=== PATIENT | female | born 2000 | race African-American/Black ===

== ENCOUNTER 2021-03-26 18:08 | Emergency (ER) | payer BC, SELFPAY ==
--- NOTE | ~2021-03-26 | CT_ITS ---
EXAMINATION: CT brain wo con DATE: 03/26/2021 19:20 INDICATION: Syncope TECHNIQUE: Computed tomography (CT) of the head was performed without intravenous contrast. Sagittal and coronal reconstructions were performed. The mA was adjusted according to patient size. Iterative reconstruction technique was employed. The dose-length product was 605.33 mGy-cm. COMPARISON: None FINDINGS: No acute intracranial hemorrhage, acute infarction or abnormal extra axial fluid collection. Ventricl es are normal and symmetric. No mass/mass effect. The orbits, paranasal sinuses and mastoid air cells are normal. IMPRESSION: 1. Normal head CT. Reviewed, dictated and finalized at location A. IMPRESSION: 1. Normal head CT.
--- NOTE | ~2021-03-26 | XR_ITS ---
EXAMINATION: XR chest 2V DATE: 03/26/2021 19:30 INDICATION: Syncope, nausea, vomiting and diarrhea TECHNIQUE: frontal and lateral views of the chest were obtained. COMPARISON: None FINDINGS: The lungs are clear with no focal airspace opacities, pulmonary edema, pleural effusion or pneumothor ax. The cardiomediastinal silhouette is normal. Mild thoracic dextrocurvature. IMPRESSION: 1. No acute cardiopulmonary disease. Reviewed, dictated and finalized at location A.
[2021-03-26 18:11] VITALS: BP 115/73; PULSE 83; RESP 19; TEMP 36.9; O2SAT 100
--- NOTE | 2021-03-26 19:11 | ECG_ITS ---
Measurements Intervals [place] Rate: 86 P: 60 NM: 136 QRS: 61 QRSD: 78 T: 16 QT: 356 QTc: 426 Interpretive Statements SINUS RHYTHM BASELINE ARTIFACT- I, II, AVR, AVL, AVF NORMAL ECG Electronically Signed On 03-27-2021 19:10:35 CDT by Dinesh Beard D.O.
--- NOTE | 2021-03-26 19:11 | ED.GENADULT ---
HPI - General Adult General Chief complaint: Syncope Stated complaint: lethargic/weak/unsteady gait Source: patient Mode of arrival: EMS Limitations: no limitations History of Present Illness HPI narrative: Patient presents for evaluation after near syncopal versus syncopal event that occurred just prior to arrival. 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 She tried were in the vehicle when she began to feel warm. She states she started seeing dark spots . She and the child got out of the car at the residence where she was babysitting. She states she then fell into the grass. She did not hit her head and is unsure whether she had a LOC. The child got up and walked to her neighbor's home and she fell two additional times. She states that during all 3 fall she injured her self. States that the present time she feels a little weak but otherwise feels okay. She denies any precipitating chest pain or shortness of breath. Does not use any illicit drugs. She is not on any home medications. No history of similar symptoms. Brought in by EMS. No additional complaints or concerns. Related Data Home Medications Medication Instructions Recorded Confirmed No Home Medications 03/26/21 03/26/21 Allergies Allergy/AdvReac Type Severity Reaction Status Date / Time No Known Allergies Allergy Verified 03/26/21 18:23 Review of Systems Review of Systems: Narrative: CONSTITUTIONAL: Denies fever, chills, or sweats. EYES: Denies visual changes, redness, or discharge. ENT: Denies rhinorrhea, congestion, sore throat, or otalgia. CARDIOVASCULAR: Denies chest pain, palpitations, or edema. RESPIRATORY: Denies cough or dyspnea. GASTROINTESTINAL: Denies abdominal pain, nausea, vomiting, or diarrhea. GENITOURINARY: Denies dysuria or hematuria. SKIN: Denies rash or itching. MUSCULOSKELETAL: Denies back pain, joint pain, or myalgia. NEUROLOGIC: Reports headache and momentary LOC following fall. PSYCHIATRIC: Denies anxiety or depression. [facility] Past Medical History Medical History (Updated 03/26/21 @ 20:48 by Heriberto Low, BARBAR[place], [place]) No pertinent past medical history Surgical History Surgical History No pertinent past surgical history Family History Family History Mother No pertinent past medical history Social History Social History (Updated 03/26/21 @ 19:16 by Heriberto Low [facility]) Smoking status: Never smoker Alcohol intake: never Substance use: never Living arrangements: with roommate(s) Occupation/Education: student Gender identity (if verbalized by the patient): Female Spiritual care concerns: No Exam Narrative: Exam Narrative: GENERAL: Well-appearing, well-nourished, and in no acute distress. HEAD: Normocephalic, atraumatic. EYES: PERRLA and EOMI. ENT: Nares clear, no rhinorrhea or epistaxis. Mucous membranes moist. Oropharynx without tonsillar hypertrophy exudate or other lesions. Bilateral TMs pearly aaron nonbulging NECK: Supple. No adenopathy or masses. No carotid bruits or JVD CHEST: Clear to auscultation. No respiratory distress. No wheezes rales or rhonchi HEART: Regular rate and rhythm. No murmur heard. Normal peripheral pulses. ABDOMEN: Soft, nontender, nondistended, normal active bowel sounds. EXTREMITIES: Normal range of motion. No edema. SKIN: Warm, dry, no rash. NEURO: No focal deficits. Alert and oriented x3. Normal finger to nose exam. Able to perform rapid alternating movements without difficulty. PSYCH: Normal mood and affect. Course Course Emergency Course: This is a 21-year-old female who presented after being transported to the hospital by EMS following a syncopal episode. CT head negative. Chest x-ray negative. Trope. Labs fairly benign. EKG with no acute ischemic changes. On reas
[2021-03-26 19:48] LABS: Basophils Percent Auto 0.3 % (0.2-1.2); Hematocrit 38.9 % (37.0-47.0); Hemoglobin 12.3 g/dL (12.0-15.0); Immature Granulocyte Absolute 0.01 K/mm3 (0.00-0.031); Immature Granulocyte Percent A 0.1 % (0-0.5); Lymphocytes Absolute Auto 0.39 K/mm3 (0.9-3.2); Mean Corpuscular HGB Conc 31.6 g/dl (32-36); Mean Corpuscular Hemoglobin 28.4 pg (26-34); Mean Corpuscular Volume 89.8 fl (80-100); Monocytes Absolute Auto 0.4 K/mm3 (0.1-0.6); Monocytes Percent Auto 4.9 % (2.6-8.5); Neutrophils Percent Auto 89.7 % (45.5-73.1); Platelet Count Result 289 k/mm3 (150-375); Red Blood Count 4.33 M/mm3 (4.2-5.4); Red Cell Distribution Width 13.8 % (11.5-14.5); White Blood Count 7.8 K/mm3 (4.5-10.0)
[2021-03-26 19:57] LABS: Alanine Aminotransferase 16 U/L (4-35); Albumin Level 4.7 g/dL (3.5-5.1); Alkaline Phosphatase 46 U/L (38-126); Anion Gap 8 mmol/L (8-16); Aspartate Amino Transferase 31 U/L (14-36); Bilirubin,Total 0.9 mg/dL (0.2-1.3); Blood Urea Nitrogen 11 mg/dL (7-17); Carbon Dioxide 24 mmol/L (22-30); Chloride 109 mmol/L (98-107); Creatine Kinase 97 U/L (30-135); Estimated Glomerular Filt Rate > 60; Glucose 102 mg/dL (65-105); Potassium 3.8 mmol/L (3.4-5.0); Prothrombin Time 13.6 Seconds (11.1-14.7); Sodium 141 mmol/L (137-145)
[2021-03-26 19:58] LABS: Partial Thromboplastin Time 26.4 SECONDS (22.3-36.8)
[2021-03-26 20:09] LABS: NT Pro B Type Natriuretic Pept 36 pg/mL (5-100); Troponin I < 0.012 ng/mL (0.000-0.034)
[2021-03-26 20:21] VITALS: BP 120/83; BP 125/82; PULSE 75; PULSE 86
[2021-03-26 20:22] VITALS: BP 113/81; PULSE 118
[2021-03-26 20:29] LABS: Add Urine Microscopic? YES; Appearance Urine Cloudy (Clear); Bilirubin Urine Negative (Negative); Blood Urine Negative (Negative); Color Urine Yellow (Yellow); Glucose Urine UA Negative (Negative); Ketones Urine 1+ mg/dL (Negative); Leukocyte Esterase Ur Negative LEU/UL (Negative); Mucus Urine Few /lpf; Nitrate Urine Negative (Negative); Protein Urine 2+ mg/dL (Negative); RBC Urine 0-2 /hpf (0-2); Specific Grav Ur 1.019 (1.001-1.035); Squamous Epithelial Cell Urine Occasional /hpf (Few); Urobilinogen Urine Negative mg/dL (<2.0)
[2021-03-26] MEDS: SODIUM CHLORIDE 0.9% IV 1,000 ML 999 ML IV CONT (21:02)
[2021-03-26 21:03] VITALS: BP 108/75; PULSE 89; RESP 18; O2SAT 98
[2021-03-26 22:03] VITALS: BP 110/74; PULSE 84; RESP 18; O2SAT 99
== END 2021-03-26 22:29 | disposition home or self-care (01) ==
PROVIDERS: Emergency Provider Nurse Practitioner
DX: R55 Syncope and collapse (principal)
CPT/HCPCS: 36415; 70450; 71046; 80053; 81001; 82550; 83880; 84484; 85025; 85610; 85730; 93005; 96360; 99284; J7030